=== PATIENT | male | born 1955 | race African-American/Black ===

== ENCOUNTER 2016-12-24 11:22 | Emergency (ER) | payer MEDICARE ==
[2016-12-24 11:35] LABS: BASOPHIL 0.9 % (0-2); EOSINOPHIL 12.7 % (0-5); HCT 29.8 % (42.0-52.0); HGB 9.2 g/dl (13.2-18.0); LYMPHOCYTE 11.7 % (15-48); MCH 27.1 pg (25.0-31.0); MCHC 30.9 g/dL (32.0-36.0); MCV 87.6 fL (78.0-100.0); MPV 9.8 fL (6.0-9.5); NEUTROPHIL 67.7 % (41-80); PLT 316 K/uL (150-400); RDW 16.3 % (11.5-14.0); WBC 11.3 K/uL (4.0-10.5)
[2016-12-24 11:41] LABS: INR 2.57 (0.9-1.2); PROTHROMBIN TIME 26.9 SECONDS (11.7-14.0); PTT 36.6 SECONDS (23.2-31.4)
[2016-12-24 11:42] LABS: D-DIMER 0.27 ug/mLFEU (0.00-0.41)
[2016-12-24 11:47] LABS: TROPONIN T 0.02 ng/mL
[2016-12-24 11:49] LABS: ALBUMIN 3.9 g/dL (3.5-5.0); BILIRUBIN - TOTAL 0.7 mg/dL (0.1-1.0); CREATININE 4.4 mg/dL (0.7-1.2); GLOBULIN (CALCULATION) 3.1 g/dL (2.2-4.2); POTASSIUM 4.2 mmol/L (3.5-5.1)
== END 2016-12-24 14:40 | disposition home or self-care (01) ==
LOC: FER 11:22
PROVIDERS: Emergency Medicine
DX: I11.0 Hypertensive heart disease with heart failure (principal); I50.9 Heart failure, unspecified; I48.91 Unspecified atrial fibrillation; J44.9 Chronic obstructive pulmonary disease, unspecified; Z79.01 Long term (current) use of anticoagulants; Z79.82 Long term (current) use of aspirin; Z79.899 Other long term (current) drug therapy
CPT/HCPCS: 36415; 36600; 71020; 80053; 82803; 83880; 84484; 85025; 85379; 85610; 85730; 93005

== ENCOUNTER 2022-03-29 12:22 | Emergency (ER) | payer OTHER ==
[~2022-03-29 12:22] MED LIST: ALLOPURINOL100 MG PO; ASPIRIN CHEWABL81 MG PO; CARTIA XT240 MG PO; COREG25 MG PO; COUMADIN5 MG PO; CYCLOBENZAPRINE10 MG PO; GABAPENTIN 100100 MG PO; GABAPENTIN100 MG PO; HYDRALAZINE25 MG PO; K-DUR20 MEQ PO; LASIX80 MG PO; LIPITOR 10MG TA10 MG PO; METALAZONE PO; NEURONTIN100 MG PO; NITROQUIK SL0.4 MG SL; VITAMIN D50000 UNIT PO
== END 2022-03-29 16:54 | disposition home or self-care (01) ==
LOC: FER 12:22
DX: Z48.01 Encounter for change or removal of surgical wound dressing (principal); I11.0 Hypertensive heart disease with heart failure; I50.9 Heart failure, unspecified; J44.9 Chronic obstructive pulmonary disease, unspecified; Z79.890 Hormone replacement therapy
CPT/HCPCS: 99282